=== PATIENT | male | born 1965 | race Hispanic/Latino ===

== ENCOUNTER 2017-08-29 15:43 | Inpatient (IN) | payer OTHER, MEDICARE ==
[2017-08-29] MEDS ORDERED: Ketorolac Tromethamine 30 MG/ML VIAL ONE (17:05)
[2017-08-29] MEDS ORDERED: Acetaminophen 500 MG TAB ONE (17:14)
[2017-08-29 17:15] LABS: #Lymphocytes 0.8 thou/uL (1.20-3.40); #Monocytes 0.6 thou/uL (0.11-0.59); #Neutrophils 5.9 thou/uL (1.40-6.50); %Basophils 0.4 % (0.0-1.0); %Eosinophils 0.5 % (0.0-10.0); %Lymphocytes 10.5 % (21.0-51.0); %Monocytes 8.2 % (0.0-10.0); Mean Platelet Volume 8.7 fL (7.4-10.4); Red Blood Cell (RBC) Count 3.73 mill/uL (4.70-6.10); White Blood Cell (WBC) Count 7.4 thou/uL (4.8-10.8)
[2017-08-29 17:26] LABS: Macrocytosis SLIGHT = 6-15 cells (100X) (0-5/hpf); Polychromasia SLIGHT = 2-3 cells (100X) (0-2/hpf)
--- NOTE | 2017-08-29 17:27 | CT ---
CT OF HEAD NONCONTRAST 08/29/17 INDICATION: Altered mental status. FINDINGS: There is no evidence of ventriculomegaly, mass effect, midline shift or acute intracranial hemorrhage . Suggestion of minimal chronic microvascular ischemic disease. Partial opacification of the imaged p ortion of the paranasal sinuses and elevated right maxillary sinus. IMPRESSION: No acute intracranial hemorrhage or mass effect. POS: [facility]
[2017-08-29 17:34] LABS: ALT (SGPT) 8 U/L (8-55); AST (SGOT) 12 U/L (5-34); Alkaline Phosphatase 48 U/L (40-150); Anion Gap 18 mmol/L (10-20); BUN (Urea Nitrogen) 54 mg/dL (8.4-25.7); Bilirubin, Total 0.6 mg/dL (0.2-1.2); Calc. Creatinine Clearance 0 mL/min (70-130); Calcium 8.9 mg/dL (7.8-10.44); Carbon Dioxide 28 mmol/L (22-29); Chloride 87 mmol/L (98-107); Estimated GFR-MDRD 3; Globulin 3.7 g/dL (2.4-3.5); Protein, Total 7.6 g/dL (6.0-8.3)
[2017-08-29] MEDS ORDERED: Potassium Chloride 20 MEQ TAB PO SCH (18:45)
[2017-08-29] MEDS ORDERED: Dextrose 5% in Water 1,000 ML IV PRN (19:41)
[2017-08-29] MEDS ORDERED: Dextrose 50% Abboject 50 ML SYRINGE SLOW IVP PRN (19:41)
[2017-08-29] MEDS ORDERED: Ondansetron HCl/PF 4 MG/2 ML Vial IVP PRN (20:16)
[2017-08-29] MEDS ORDERED: Ondansetron ODT 4 MG TAB SL PRN (20:16)
--- NOTE | 2017-08-29 20:20 | HP ---
PRIMARY CARE PHYSICIAN: Daria Pace M.D. CHIEF COMPLAINT: Cough. HISTORY OF PRESENT ILLNESS: Mr. Muir is a pleasant 52-year-old gentleman who was seen at [facility] on 08/29/2017. He reports that he had a cough over the last 3-4 days. He reports that it is accompanied by headache and chills. He also started having whitish sputum today. He was seen at urgent care clinic. He was diagnosed with influenza. He received 1 dose of Tamiflu. However, they did not send him home on Tamiflu, because he is a dialysis patient. He also reports that he found himself on the floor twice today, cannot recall how he got there. His glasses were lying to him. He reports that these kinds of episodes have happened in the past as well . He denies any fecal or urinary incontinence. So far, these episodes have been unwitnessed. He de nies any head trauma. He denies any chest pain. I note that, he had a nuclear stress test in 10/2016, which showed mild left ventricular dilatation, no evidence of reversible ischemia and global hypokinesis. He also had cardiac catheterization in , which showed left main disease and 2-vessel CAD, the CAD appearing to have improved since his previous catheterization in 2014. He was recommended medical management. REVIEW OF SYSTEMS: The following complete review of systems was negative, unless otherwise mentioned in the HPI or below: Constitutional: Weight loss or gain, sense of well-being, ability to conduct usual activities, exerc ise tolerance. Skin/Breast: Rash, itching, changes in hair growth or loss, nail changes, breast lumps, tenderness, swelling, nipple discharge. Eyes: Vision, double vision, tearing, blind spots, pain. ENT/Mouth: Headaches (location, time of onset, duration, precipitating factors), vertigo, lightheade dness, injury. Vision, double vision, tearing, blind spots, pain, nose bleeding, colds, obstruction, discharge, dental difficulties, gingival bleeding, dentures, neck stiffness, pain, tenderness, masses in thyroid or other areas. Cardiovascular: Precordial pain, substernal distress, palpitations, syncope, dyspnea on exertion, or thopnea, nocturnal paroxysmal dyspnea, edema, cyanosis, hypertension, heart murmurs, varicosities, ph lebitis, claudication. Respiratory: Pain, shortness of breath, wheezing, stridor, cough, hemoptysis, fever or night sweats. Gastrointestinal: Poor appetite, dysphagia, indigestion, abdominal pain, heartburn, eructation, naus ea, vomiting, hematemesis, jaundice, constipation, or diarrhea, abnormal stools (jeannette-colored, tarry, bloody, greasy, foul smelling), flatulence, hemorrhoids, recent changes in bowel habits. Genitourinary: Urgency, frequency, dysuria, nocturia, hematuria, polyuria, oliguria, unusual (or judy nge in) color of urine, stones, hesitancy, change in size of stream, dribbling, acute retention or in continence, libido, potency. Musculoskeletal: Pain, swelling, redness or heat of muscles or joints, limitation, of motion, muscul ar weakness, atrophy, cramps. Neurologic/Psychiatric: Convulsions, paralyzes, tremor, incoordination, paresthesias, difficulties w ith memory of speech, sensory or motor disturbances, or muscular coordination (ataxia, tremor), emoti onal problems, anxiety, depression, previous psychiatric care, unusual perceptions, hallucinations. Allergy/Immunologic: Skin rash, anemia, bleeding tendency, polydipsia, polyuria, intolerance to heat or cold. PAST MEDICAL HISTORY: Significant for end-stage renal disease on peritoneal dialysis, coronary arter y disease, cardiomyopathy, diet-controlled diabetes mellitus, moderate left internal carotid artery s tenosis, hypertension, chronic anemia, hyperparathyroidism, hypoalbuminemia, diabetic nephropathy, an d collapsed lung in 2007. PAST SURGICAL HISTORY: Significant for dialysis fistula placement. ALLERGIES: ASPIRIN, IODINE. FAMILY HISTORY: Renal failure in his father, two of his cousins in their sleep, diabetes mellit us and hypertension in his father, and hypertension in his mother. SOCIAL HISTORY: The patient denies tobacco use, alcohol use, or recreational drug use. CURRENT MEDICATIONS: These need to be clarified, patient is unable to provide a list of medications. PHYSICAL EXAMINATION: GENERAL: Mr. Muir is awake and alert, not in acute distress. VITAL SIGNS: Blood pressure is 132/75, pulse is 84. He is breathing at rate of 16, and saturating 1 00% on room air. He is afebrile. EYES: No scleral icterus. No conjunctival pallor. ENT: Moist mucosal membranes, no oropharyngeal erythema or exudates. NECK: Supple, nontender, normal range of movement, trachea is midline. RESPIRATORY: Accessory muscles of breathing are not active. Chest wall movements are symmetric bila terally. Lung examination revealed occasional expiratory wheeze. CARDIOVASCULAR: S1 and S2 are heard, regular. Peripheral pulses are palpable. No carotid bruit, no pericardial rub. ABDOMEN: Soft, nontender, bowel sounds heard, no hepatomegaly, no splenomegaly, peritoneal dialysis catheter site looks clean. NEUROLOGIC: Cranial nerves II-XII are intact, deep tendon reflexes are 2+. PSYCHIATRIC: Normal mood, normal affect, patient is oriented to person, place, and time. MUSCULOSKE LETAL: Power is 5/5 in all 4 extremities. Normal range of movement at all major extremity joints. LYMPHATIC: No cervical lymphadenopathy. SKIN: No rashes or subcutaneous nodules. LABORATORY DATA: Mr. Muir's labs and investigations were reviewed. I reviewed his electrocardiogr am, which shows normal sinus rhythm, no ST changes to suggest an acute coronary syndrome. I also rev iewed plain CT scan of the brain, which does not show any intracranial bleed. Laboratory investigati ons show normal white count, macrocytic anemia with hemoglobin 12.8, normal platelet count. Decrease d sodium of 130, decreased potassium of 2.9, elevated blood urea nitrogen 54, elevated creatinine 16. 72, decreased magnesium of 1.5 and an unremarkable liver profile. ASSESSMENT AND PLAN: Mr. Muir is a pleasant 52-year-old gentleman who was seen at [facility]. His problem list includes: 1. Influenza infection: Mr. Muir presents with recently diagnosed influenza infection. I am unab le to access the actual report. Mr. Muir will be treated with Tamiflu, dosed for dialysis patient. 2. Passing out: He appears to have multiple episodes. He does have a significant cardiomyopathy. I cannot rule out a seizure at this time, however. He will be admitted to the hospital for telemetry monitoring. Cardiology and Neurology services will be consulted. I note that reviewing his old rec ords, he was not using [facility]est because of financial reasons. I do not know if this may have changed recently. 3. End-stage renal disease on dialysis: Nephrology service has been consulted for maintenance perit [facility]. 4. Hypertension: Continue home medications once clarified, monitor vital signs and titrate antihype rtensives as needed. 5. Hyponatremia: Monitor electrolytes. 6. Hypokalemia: Provide 1 dose of 40 mEq of potassium chloride, especially since he may be having a rrhythmias. 7. Diabetes mellitus type 2: Start Accu-Cheks, insulin sliding scale. Many thanks for allowing me to participate in your patient's care. Please feel free to contact me wi th any questions or concerns. LEVEL OF RISK: High. LEVEL OF COMPLEXITY: High.
[2017-08-29 21:18] VITALS: BMI 27.4
[2017-08-29] MEDS: Heparin 5,000 UNITS/ML VIAL SC SCH (21:37)
[2017-08-29] MEDS: Benzonatate 100 MG CAP PO PRN (21:44)
[2017-08-30 04:22] LABS: #Eosinphils 0.1 thou/uL (0.0-0.7); #Lymphocytes 1.4 thou/uL (1.20-3.40); #Monocytes 0.5 thou/uL (0.11-0.59); %Basophils 0.3 % (0.0-1.0); %Eosinophils 1.9 % (0.0-10.0); %Lymphocytes 22.5 % (21.0-51.0); Hematocrit 31.4 % (42.0-52.0); Mean Platelet Volume 8.5 fL (7.4-10.4); Red Blood Cell (RBC) Count 3.05 mill/uL (4.70-6.10)
[2017-08-30 04:28] LABS: Anion Gap 16 mmol/L (10-20); BUN (Urea Nitrogen) 60 mg/dL (8.4-25.7); Calc. Creatinine Clearance 6 mL/min (70-130); Calcium 8.1 mg/dL (7.8-10.44); Carbon Dioxide 25 mmol/L (22-29); Chloride 94 mmol/L (98-107); Estimated GFR-MDRD 3
[2017-08-30 08:37] LABS: Troponin I 0.061 ng/mL (< 0.028)
[2017-08-30] MEDS ORDERED: Enoxaparin Sodium 40 MG/0.4 ML SYRINGE SC SCH (09:00)
[2017-08-30] MEDS ORDERED: Oseltamivir 6 MG/ML ORAL SUSP PO SCH (09:00)
--- NOTE | 2017-08-30 09:19 | PDOC.PN ---
- Subjective Encounter Start Date: 08/30/17 Encounter Start Time: 07:50 -: old records requested/rev Pt seen and examined, chart reviewed in its entirety. No F/c, no N/V/d/C. Some dizziness when stnading, but overlal improved. orrthostatics done earlier he reports, got dizzy and sat right down, no syncope, no tunnel darkening. Denies F/c, no N/V/d/C, no CP, no SOB, no cough. Pt on PD, given single dose of tamiflu at urgent care two days ago, does not need more. dose today cancelled. Neurology consulted, awaiting visit. Nephrology consulted and saw the pt late last night. recommended biomarkers, carotid U/S - i have ordered these for today Cardiology consulted - awaiting visit, tele has been negative 10 point ROS performed and neg for all except as per HPI above - Objective MAR Reviewed: Yes Vital Signs & Weight: Vital Signs (12 hours) Temp Pulse Resp BP Pulse Ox 08/30/17 08:00 97.6 F 76 16 133/84 98 08/30/17 04:00 97.8 F 76 18 129/79 98 08/29/17 23:24 98.0 F 86 16 107/63 100 Weight Weight 175 lb 3.2 oz I&O: 08/29/17 08/30/17 08/31/17 06:59 06:59 06:59 Intake Total 120 Output Total 1 Balance 119 Result Diagrams: 08/30/17 03:45 08/30/17 03:45 Additional Labs: Accuchecks 08/30/17 08/29/17 06:00 21:25 POC Glucose 155 H 189 H Radiology Reviewed by me: Yes EKG Reviewed by me: Yes Phys Exam - Physical Examination Constitutional: NAD HEENT: PERRLA, moist MMs, sclera anicteric, oral pharynx no lesions Neck: no nodes, no JVD, supple, full ROM Respiratory: no wheezing, no rales, no rhonchi, clear to auscultation bilateral Cardiovascular: RRR, no significant murmur, no rub Gastrointestinal: soft, non-tender, no distention, positive bowel sounds Musculoskeletal: pulses present, edema present Neurological: non-focal, normal sensation, moves all 4 limbs Lymphatic: no nodes Psychiatric: normal affect, A&O x 3 Skin: no rash, normal turgor, cap refill <2 seconds Dx/Plan (1) Influenza A Code(s): J10.1 - FLU DUE TO OTH IDENT INFLUENZA VIRUS W OTH RESP MANIFEST Status: Acute Comment: received tamiflu 2 days ago. with PD, recommended for single dose. no further indicated (2) CKD (chronic kidney disease) stage 5, GFR less than 15 ml/min Code(s): N18.5 - CHRONIC KIDNEY DISEASE, STAGE 5 Status: Chronic Comment: ESRD on PD. (3) Diabetes type 2, uncontrolled Code(s): E11.65 - TYPE 2 DIABETES MELLITUS WITH HYPERGLYCEMIA Status: Acute Qualifiers: Diabetes mellitus complication status: with kidney complications Diabetes mellitus complication detail: with chronic kidney disease Diabetes mellitus regulatory technician insulin use: without jail use Chronic kidney disease stage: on chronic dialysis Qualified Code(s): E11.22 - Type 2 diabetes mellitus with diabetic chronic kidney disease; E11.65 - Type 2 diabetes mellitus with hyperglycemia; E11.65 - Type 2 diabetes mellitus with hyperglycemia; E11.65 - Type 2 diabetes mellitus with hyperglycemia; E11.65 - Type 2 diabetes mellitus with hyperglycemia; N18.6 - End stage renal disease; N18.6 - End stage renal disease; N18.6 - End stage renal disease; N18.6 - End stage renal disease; Z99.2 - Dependence on renal dialysis; Z99.2 - Dependence on renal dialysis; Z99.2 - Dependence on renal dialysis; Z99.2 - Dependence on renal dialysis (4) Anemia Code(s): D64.9 - ANEMIA, UNSPECIFIED Status: Chronic Qualifiers: Anemia type: due to chronic kidney disease Chronic kidney disease stage: on chronic dialysis Qualified Code(s): N18.6 - End stage renal disease; D63.1 - Anemia in chronic kidney disease; D63.1 - Anemia in chronic kidney disease; Z99.2 - Dependence on renal dialysis; Z99.2 - Dependence on renal dialysis; Z99.2 - Dependence on renal dialysis; Z99.2 - Dependence on renal dialysis (5) Cardiomyopathy Code(s): I42.9 - CARDIOMYOPATHY, UNSPECIFIED Status: Chronic Qualifiers: Cardiomyopathy type: unspecified Qualified Code(s): I42.9 - Cardiomyopathy , unspecified Comment: last EF 30-35%.repeat ECHO results pending (6) DM type 2 (diabetes mellitus, type 2) Status: Chronic Qualifiers: Diabetes mellitus complication status: with kidney complications Diabetes mellitus complication detail: with chronic kidney disease Chronic kidney disease stage: on chronic dialysis (7) ESRD (end stage renal disease) Code(s): N18.6 - END STAGE RENAL DISEASE Status: Chronic Comment: on PD (8) Hypertension Code(s): I10 - ESSENTIAL (PRIMARY) HYPERTENSION Status: Chronic Qualifiers: Hypertension type: essential hypertension Qualified Code(s): I10 - Essential (primary) hypertension Comment: uncontrolled - Plan cont current plan of care, PT/OT * .
[2017-08-30] MEDS: Heparin 5,000 UNITS/ML VIAL SC SCH ×3 (09:21→21:25)
--- NOTE | 2017-08-30 12:23 | ULT ---
CAROTID ULTRASOUND WITH DOPPLER: Date: 08/30/17 HISTORY: Syncope. COMPARISON: 08/06/15. TECHNIQUE: Peralta scale, color flow, Doppler imaging, and spectral waveform analysis performed in the carotid and vertebral arteries. FINDINGS: RIGHT CAROTID: There are small foci of calcified plaque in the carotid artery. Peak systolic velocity in the common carotid artery is 107 cm/second. Peak systolic velocity in the internal carotid artery is 84.8 cm/sec ond. Systolic ICA/CCA ratio is 0.8. LEFT CAROTID: Atherosclerotic disease of the left carotid artery. Peak systolic velocity in the common carotid carly ry is 123.9 cm/second. Peak systolic velocity in the internal carotid artery is 144 cm/second. Peak e nd-diastolic velocity of the internal carotid artery is 43.7 cm/second. Systolic ICA/CCA ratio is 1.2 . Antegrade flow in both vertebral arteries. IMPRESSION: Sonographic evidence of moderate (50-69%) stenosis of the left internal carotid artery. Better interr ogation with CT angiogram of the neck is recommended. POS: PAT
[2017-08-30] MEDS: Acetaminophen 325 MG TAB PO PRN (15:00)
[2017-08-30] MEDS: HumaLOG 300 UNITS/3 ML VIAL SC PRN (17:50)
[2017-08-30] MEDS: Sevelamer Carbonate 800 MG TAB PO SCH (17:51)
[2017-08-30 17:58] LABS: Troponin I 0.036 ng/mL (< 0.028)
--- NOTE | 2017-08-30 20:42 | CON ---
NEUROLOGIC FOLLOWUP NOTE DATE OF CONSULTATION: 08/30/2017 REFERRING PHYSICIAN: Hospitalist Service. IMPRESSION: 1. Recurrent seizures. 2. Renal failure. PLAN: 1. Keppra 250 mg twice a day. 2. Office followup. Mr. Muir is a 52-year-old man, I have seen in the office for workup of seizure activity as EEG and imaging have been unremarkable. He has had 3 witnessed events in the recent past. He has no aura pr ior to the onset. His family has witnessed generalized tonic clonic activity. He was admitted and h ad a CT scan of the brain done, which was normal. LABORATORY STUDIES: Consistent with his renal failure. SUMMARY: I have started him on Keppra 250 b.i.d. and follow up with him in the office.
[2017-08-30] MEDS: levETIRAcetam 500 MG TAB PO SCH (21:26)
[2017-08-30] MEDS: Benzonatate 100 MG CAP PO PRN (21:26)
[2017-08-31 02:19] LABS: Troponin I 0.037 ng/mL (< 0.028)
--- NOTE | 2017-08-31 04:18 | CON ---
DATE OF CONSULTATION: 08/30/2017 PRIMARY CARD READER: Dr. Adama Dash. REASON FOR CONSULTATION: Recurrent syncope. HISTORY OF PRESENT ILLNESS: Mr. Muir is a gentleman with history of coronary artery disease and so me depression of left ventricular function who was seen earlier this year in October and reevaluated. It had previously found to have 2-vessel coronary disease. Reevaluation was done including stress test, nuclear medicine, perfusion imaging. At that time, he was found to have ejection fraction of 3 5%, 41% initially, delayed stress imaging 35%. There was no evidence of reversible ischemia, global hypokinesis. Medical therapy was continued. He also had an echocardiogram with ejection fraction of 35% to 40%. At that point, he did not meet criteria to have defibrillator placed. Since then, the patient has had done okay, but recently has had multiple episodes of being unresponsive and appeared it was sounds like at least one syncopal episode, perhaps several weeks, unresponsive, came here for further evaluation. No chest pain or pressure. MEDICATIONS: 1. Carvedilol 12.5 mg twice daily. 2. Isosorbide 60 mg daily. 3. Simvastatin. 4. Acetaminophen. ALLERGIES: To ASPIRIN and IODINE. PAST MEDICAL HISTORY: End-stage renal disease on peritoneal dialysis. He is hoping for renal transp lant. REVIEW OF SYSTEMS: Constitutional: No significant weight gain or loss. Vision: No changes. Hearing: No changes. Pu lmonary: No cough or wheezing. Gastrointestinal: No nausea, vomiting, diarrhea. Skin: No rashes. Neurologic: No unilateral weakness or numbness. Psychiatric: No unusual depression or anxiety. Hematologic: No unusual bruising. Genitourinary: No burning with urination. PHYSICAL EXAMINATION: GENERAL: This is a delightful 52-year-old man in no distress. VITAL SIGNS: Blood pressure 150/87, the nurse voice and data technician did take the blood pressure standing, sitti ng, it dropped slightly with sitting, but went back up to normal standing. NECK: Neck veins are normal. Carotid normal upstrokes. No bruits. LUNGS: Clear. No wheezing. CARDIAC: Normal S1, normal S2. There is no murmur, rub or gallop. ABDOMEN: Soft, nontender, no hepatosplenomegaly. EXTREMITIES: Warm and dry. No clubbing, no cyanosis, no edema. HEMATOLOGIC: No unusual bruising. PSYCHIATRIC: Mood and affect normal. SKIN: Warm and dry. PERTINENT LABORATORY: The creatinine is 17. Troponin 0.061. Hemoglobin is 11.1. EKG: Normal EKG. ASSESSMENT: 1. Coronary artery disease. 2. Ejection fraction has been 35-40% range. 3. Unresponsive episodes that sounds like at least one of the sounds like a syncopal episode. PLAN: 1. Repeat echocardiogram. 2. May qualify for defibrillator implantation. He is being monitored now to see if there is any mahamed dence of ventricular arrhythmias.
[2017-08-31 05:42] LABS: #Eosinphils 0.2 thou/uL (0.0-0.7); #Lymphocytes 0.9 thou/uL (1.20-3.40); #Monocytes 0.5 thou/uL (0.11-0.59); #Neutrophils 4.8 thou/uL (1.40-6.50); %Basophils 0.2 % (0.0-1.0); %Eosinophils 3.1 % (0.0-10.0); %Lymphocytes 14.1 % (21.0-51.0); %Monocytes 7.5 % (0.0-10.0); Hematocrit 33.5 % (42.0-52.0); Red Blood Cell (RBC) Count 3.28 mill/uL (4.70-6.10); White Blood Cell (WBC) Count 6.3 thou/uL (4.8-10.8)
[2017-08-31 06:00] LABS: Anion Gap 20 mmol/L (10-20); BUN (Urea Nitrogen) 65 mg/dL (8.4-25.7); Calc. Creatinine Clearance 6 mL/min (70-130); Calcium 8.2 mg/dL (7.8-10.44); Carbon Dioxide 21 mmol/L (22-29); Chloride 92 mmol/L (98-107); Estimated GFR-MDRD 3; Magnesium 1.7 mg/dL (1.6-2.6)
[2017-08-31] MEDS: HumaLOG 300 UNITS/3 ML VIAL SC PRN (06:32)
[2017-08-31] MEDS: Sevelamer Carbonate 800 MG TAB PO SCH ×3 (08:38→17:21)
[2017-08-31] MEDS: levETIRAcetam 500 MG TAB PO SCH ×2 (08:39→23:19)
[2017-08-31] MEDS: Heparin 5,000 UNITS/ML VIAL SC SCH ×3 (08:41→20:07)
[2017-08-31] MEDS: Benzonatate 100 MG CAP PO PRN ×2 (08:50→13:40)
--- NOTE | 2017-08-31 11:29 | PRG ---
DATE OF SERVICE: 08/31/2017 SUBJECTIVE: The patient is seen and examined at bedside. He is doing quite well. He does not have much complaints to offer. He did not have more seizures overnight. OBJECTIVE: VITAL SIGNS: Blood pressure is 154/95, pulse is 67, respiratory rate 24, temperature is 98.4, O2 sat uration is 91-98% on room air. HEENT: His head is atraumatic, normocephalic. Eyes PERRLA. Conjunctivae pinkish. Oral mucosa is m oist. NECK: Supple, no lymphadenopathy. LUNGS: Clear. HEART: S1, S2 normal, no S3, no S4, no murmur. ABDOMEN: Soft, nontender, bowel sounds are present, no organomegaly. EXTREMITIES: No clubbing, cyanosis or edema. NEUROLOGIC: He is alert and oriented x4. There is no sensorimotor deficit. Cranial nerves are inta ct. LABORATORY DATA: Showed a white count of 6.3, hemoglobin 11.8, hematocrit 33.5, platelet count is 10 1. Sodium of 130, potassium 3.0, chloride 92, CO2 21, BUN 65, creatinine 16.96, glucose is ranging from 130s to 233. Third troponin I is 0.037. CK-MB is 2.6. MICROBIOLOGY: None. IMPRESSION: 1. Recurrent seizures. The patient was seen by Neurology and placed on Keppra. Follow up in Dr. John kamara's office is recommended post-discharge 2. Influenza infection. 3. End-stage renal disease on peritoneal dialysis. Dr. Anderson has seen the patient. 4. Hypertension. 5. Diabetes mellitus type 2 on sliding scale. 6. Hypokalemia. 7. Microcytic anemia. 8. Hyponatremia and hypochloremia. 9. Metabolic acidosis, most likely chronic secondary to renal insufficiency, which is chronic. 10. History of cardiomyopathy with left ventricular ejection fraction 35-40%. 11. Coronary artery disease. PLAN: We are awaiting for echocardiogram to be done and based on this, Cardiology will make a decisi on whether he is going to have a defibrillator placed or not. I also will continue his peritoneal di alysis, supervised by Dr. Anderson. We will replace his potassium.
--- NOTE | 2017-08-31 13:22 | PDOC.CTH ---
<Nisreen Barbosa - Last Filed: 08/31/17 13:32> Cardiology Progress Note - Subjective The pt seen and examined. No overnight events. He complains of sharp pain in his Mediastinal area with cough. Carotid doppler study showed 50-60% of stenosis in Lt ICA. - Objective Vital Signs Temp Pulse Resp BP BP BP Pulse Ox 08/31/17 11:20 98 F 80 18 115/74 98 08/31/17 08:00 98.4 F 67 24 H 08/31/17 07:53 98.4 F 67 24 H 105/79 91 L 08/31/17 05:05 91 16 154/95 H 98 08/31/17 04:22 98 Weight 187 lb 08/30/17 08/31/17 09/01/17 06:59 06:59 06:59 Intake Total 120 950 Output Total 1 Balance 119 950 - Physical Examination General/Neuro: alert & oriented x3 Neck: no JVD present Lungs: other: (diminished at bases) Abdomen: soft Extremities: other: (No edemas) - Telemetry Telemetry Rhythm: SR - Labs Result Diagrams: 08/31/17 05:02 08/31/17 05:02 Troponin/CKMB CK-MB (CK-2) 2.6 ng/mL (0-6.6) 08/31/17 00:16 Troponin I 0.037 ng/mL (< 0.028) H 08/31/17 00:16 - Assessment/Plan 1. Atypical CP with Indeterminate Trop - elevated Trops are possible from hx of seizure. His CP is sharp pain in mediastinal area and increases with movement, especially with severe cough 2ndary to Influenza A; 2. Cardiomyopathy - Echo in 10/2016 showed EF 35-40% with grade III diastolic dysfunction; no edemas; Another Echo was ordered 3. seizure - no seizure events during this admission; 4. Influenza A - Droplet Isolation; managed by PCP 5. HTN - well controlled with current medication 6. CKD stage 5 - ESRD on PD; 7. DM type 2 - on ACHS BG with Insulin SS; managed by PCP 8. Amemia MAR reviewed Review of Systems - Review of Systems Constitutional: reports: no symptoms reported EENTM: reports: no symptoms reported Respiratory: reports: no symptoms reported Cardiac (ROS): reports: chest pain ABD/GI: reports: no symptoms reported : reports: no symptoms reported Musculoskeletal: reports: no symptoms reported <Chato Dash - Last Filed: 08/31/17 16:24> Cardiology Progress Note - Objective Vital Signs Temp Pulse Resp BP BP BP Pulse Ox 08/31/17 15:31 97.4 F L 78 16 135/83 99 08/31/17 11:20 98 F 80 18 115/74 98 08/31/17 08:00 98.4 F 67 24 H 08/31/17 07:53 98.4 F 67 24 H 105/79 91 L 08/31/17 05:05 91 16 154/95 H 98 08/31/17 04:22 98 Weight 187 lb 08/30/17 08/31/17 09/01/17 06:59 06:59 06:59 Intake Total 120 950 Output Total 1 Balance 119 950 - Labs Result Diagrams: 08/31/17 05:02 08/31/17 05:02 Troponin/CKMB CK-MB (CK-2) 2.6 ng/mL (0-6.6) 08/31/17 00:16 Troponin I 0.037 ng/mL (< 0.028) H 08/31/17 00:16 - Assessment/Plan Pt. seen and eval. by me. No overnight events.The echo indicates an EF 40-45%. It is still unclear if he is having arrhythmias or seizures. Recheck the orthostatic BP. continue to monitor. Consider a LinQ, implantable loop recorder. I agree with the A\P by the GRAIN WAFER MACHINE OPERATOR. Chest clear, RRR.
[2017-08-31] MEDS: Carvedilol 6.25 MG TAB PO SCH (17:21)
[2017-08-31] MEDS: Acetaminophen 325 MG TAB PO PRN (17:22)
[2017-08-31] MEDS ORDERED: Sodium Chloride 0.9% 500 ML IVPB SCH ×2 (21:15→23:30)
[2017-08-31] MEDS ORDERED: Pantoprazole 40 MG VIAL IVP SCH (22:00)
--- NOTE | 2017-08-31 22:33 | RAD ---
AP VIEW OF THE CHEST 08/31/17 INDICATION: Chest discomfort. COMPARISON: Prior exam dated 05/23/17. IMPRESSION: No acute cardiopulmonary abnormality. The examination not appreciably changed from the comparison ed ed 08/28/17. POS: PAT
[2017-08-31 23:06] LABS: Troponin I 0.028 ng/mL (< 0.028)
[2017-09-01 02:00] LABS: Troponin I 0.028 ng/mL (< 0.028)
[2017-09-01] MEDS: HumaLOG 300 UNITS/3 ML VIAL SC PRN (06:17)
[2017-09-01] MEDS: Heparin 5,000 UNITS/ML VIAL SC SCH ×3 (07:51→21:30)
[2017-09-01] MEDS: Carvedilol 6.25 MG TAB PO SCH ×2 (07:53→14:59)
[2017-09-01] MEDS: Benzonatate 100 MG CAP PO PRN ×2 (09:28→13:54)
[2017-09-01] MEDS: Pantoprazole 40 MG VIAL IVP SCH (09:28)
[2017-09-01] MEDS: levETIRAcetam 500 MG TAB PO SCH ×2 (09:28→21:31)
[2017-09-01] MEDS: Sevelamer Carbonate 800 MG TAB PO SCH ×3 (11:13→17:32)
--- NOTE | 2017-09-01 20:55 | PRG ---
DATE OF SERVICE: 09/01/2017 SUBJECTIVE: The patient was seen and examined at bedside. He does not have much complaints to offer . He is getting peritoneal dialysis as I visited him. OBJECTIVE: VITAL SIGNS: Blood pressure is 105/59, pulse is 68, temperature is 98.9, respiratory rate is 20, pul se oximetry is 97% on room air. HEENT: His head is atraumatic, normocephalic. Eyes are PERRLA. Oral mucosa is moist. NECK: Supple, no lymphadenopathy. LUNGS: Few crackles at both bases. CARDIOVASCULAR: S1, S2 normal, no S3, no S4. ABDOMEN: Soft. PDI catheter is in place and is connected to the back of dialysis site and he is act ively getting dialyzed during my visit. EXTREMITIES: No clubbing, cyanosis or edema. NEUROLOGIC: He is alert and oriented x4. There is no any motor or sensory deficits. LABORATORY DATA: Showed a glycemia ranging from 132-275. IMPRESSION: 1. Recurrent seizures, currently on Keppra low dose twice a day and doing well. 2. Influenza A infection. 3. End-stage renal disease on peritoneal dialysis, actively getting dialyzed daily. Dr. Anderson is s upervising that. 4. Hypertension. 5. Diabetes mellitus type 2, relatively well controlled on a sliding scale. 6. Hypokalemia, resolved. 7. Metabolic acidosis, most likely chronic secondary to renal insufficiency. 8. Cardiomyopathy with left ventricular ejection fraction based on the last echocardiogram, estimate d visually at 40-45% along with mild diastolic dysfunction. 9. Hypotension. We had to hold his blood pressure medications because his blood pressure was runnin g down to 7 days last night and he was complaining about feeling kind of weak. He is doing better no w and his systolic is up to 105 and diastolic up to 59. The patient was seen by Dr. Villalpando, who ordered blood cultures. One source of infection if this would be the cause of the hypotension would be the abdomen since he is getting dialysis peritoneally he might have spontaneous bacterial peritoni tis. We will obtain a CBC tomorrow and chemistry and otherwise continue current regimen.
[2017-09-01] MEDS ORDERED: HumaLOG 300 UNITS/3 ML VIAL SC PRN (21:49)
[2017-09-02] MEDS: Benzonatate 100 MG CAP PO PRN ×2 (04:12→16:48)
[2017-09-02 05:39] LABS: #Basophils 0.1 thou/uL (0.0-0.2); #Eosinphils 0.2 thou/uL (0.0-0.7); #Lymphocytes 1.7 thou/uL (1.20-3.40); #Monocytes 0.4 thou/uL (0.11-0.59); #Neutrophils 3.5 thou/uL (1.40-6.50); %Basophils 0.8 % (0.0-1.0); %Lymphocytes 29.2 % (21.0-51.0); %Monocytes 7.3 % (0.0-10.0); Mean Platelet Volume 8.5 fL (7.4-10.4); Red Blood Cell (RBC) Count 3.13 mill/uL (4.70-6.10); White Blood Cell (WBC) Count 5.9 thou/uL (4.8-10.8)
[2017-09-02 05:59] LABS: Anion Gap 20 mmol/L (10-20); BUN (Urea Nitrogen) 52 mg/dL (8.4-25.7); Calc. Creatinine Clearance 8 mL/min (70-130); Calcium 8.1 mg/dL (7.8-10.44); Carbon Dioxide 22 mmol/L (22-29); Chloride 92 mmol/L (98-107); Estimated GFR-MDRD 3
[2017-09-02] MEDS: HumaLOG 300 UNITS/3 ML VIAL SC PRN ×2 (06:37→17:23)
[2017-09-02] MEDS ORDERED: Potassium Chloride 20 MEQ TAB PO SCH (07:30)
[2017-09-02] MEDS: Heparin 5,000 UNITS/ML VIAL SC SCH ×3 (08:37→20:28)
[2017-09-02] MEDS: Carvedilol 6.25 MG TAB PO SCH ×2 (08:37→16:48)
[2017-09-02] MEDS: Sevelamer Carbonate 800 MG TAB PO SCH ×3 (09:39→16:49)
[2017-09-02] MEDS: Pantoprazole 40 MG VIAL IVP SCH (09:42)
[2017-09-02] MEDS: levETIRAcetam 500 MG TAB PO SCH ×2 (09:42→20:28)
[2017-09-02] MEDS: guaiFENesin/Codeine Phosphate 200 mg/20 mg 10 ml UD Cup PO PRN ×2 (09:55→21:38)
--- NOTE | 2017-09-02 13:34 | PRG ---
DATE OF SERVICE: 09/02/2017 SUBJECTIVE: The patient is seen and examined at the bedside. He is doing significantly better. His blood pressure finally recovered. OBJECTIVE: VITAL SIGNS: Blood pressure is 111/63, temperature is 97.4, pulse is 77, respiratory rate is 18, and O2 saturations 98% on room air. HEENT: His head is atraumatic, normocephalic. Sclerae not icteric. Conjunctivae pinkish. Oral muc bharti is moist. NECK: Supple, no lymphadenopathy. Thyroid is not palpable. LUNGS: Presenting with a few crackles at both bases. HEART: S1, S2 normal, no S3, no S4. ABDOMEN: Soft. A PD catheter is in place. Site looks good. There is no erythema. EXTREMITIES: No clubbing, cyanosis, or edema. NEUROLOGICAL EXAMINATION: Intact. LABORATORY DATA: Labs showed sodium of 131, potassium 3.0, chloride 92, BUN 52, creatinine 15.28, gl ucose is ranging from 127-217, calcium is 81. White count of 5.9, hemoglobin of 10.9, hematocrit 32. 0, platelet count is 106, MCV 102. IMPRESSION: 1. Recurrent seizures. Patient is on Keppra, doing well, no more seizures during this hospitalizati on. 2. Influenza A infection. 3. End-stage renal disease, on peritoneal dialysis. 4. Hypertension. 5. Diabetes mellitus, type 2, relatively well controlled on a sliding scale. 6. Hypokalemia. The patient is going to have 40 mEq of KCl today. 7. Metabolic acidosis, secondary to renal insufficiency. 8. Cardiomyopathy with LVEF estimated at 40%-45% on last echocardiogram done during this hospitaliza tion. There is also some mild diastolic dysfunction present on echocardiogram. 9. Hypotension with orthostasis. I believe that he is getting more fluids out than he is putting in during his peritoneal dialysis and that is why he is hypovolemic and orthostatic. I am going to elisabet ve this up to his unix systems administrator, Dr. Anderson, to manage this issue and choose appropriate solutions for his peritoneal dialysis. 10. Carotid artery disease with 50%-69% stenosis of the left internal carotid artery. 11. Cardiomyopathy with EF estimated at 40%-45%, so there is no plan to put any defibrillator at thi s point. PLAN: To make some adjustment in his medications since his blood pressure is still running on the lo wer side despite of holding his blood pressure medications. Also, he needs to have adjustment of his volume, which is taken out during the dialysis. We are going to wait until Dr. Anderson makes this re commendation. For now, we will continue his current regimen, and his blood cultures came back negati ve.
[2017-09-03 05:57] LABS: Anion Gap 17 mmol/L (10-20); BUN (Urea Nitrogen) 45 mg/dL (8.4-25.7); Calc. Creatinine Clearance 7 mL/min (70-130); Calcium 7.8 mg/dL (7.8-10.44); Carbon Dioxide 25 mmol/L (22-29); Chloride 93 mmol/L (98-107); Estimated GFR-MDRD 3
[2017-09-03] MEDS: HumaLOG 300 UNITS/3 ML VIAL SC PRN ×2 (06:28→17:57)
[2017-09-03] MEDS ORDERED: Carvedilol 6.25 MG TAB PO SCH ×2 (09:34→10:00)
[2017-09-03] MEDS: Sevelamer Carbonate 800 MG TAB PO SCH ×3 (10:10→17:52)
[2017-09-03] MEDS: levETIRAcetam 500 MG TAB PO SCH ×2 (10:12→21:37)
[2017-09-03] MEDS: Pantoprazole 40 MG VIAL IVP SCH (10:13)
[2017-09-03] MEDS: Heparin 5,000 UNITS/ML VIAL SC SCH (10:14)
[2017-09-03] MEDS: guaiFENesin/Codeine Phosphate 200 mg/20 mg 10 ml UD Cup PO PRN (10:34)
[2017-09-03] MEDS: Carvedilol 6.25 MG TAB PO SCH ×2 (10:48→17:54)
[2017-09-03] MEDS ORDERED: Acetaminophen/Codeine 30-300mg Tablet PO PRN (11:47)
--- NOTE | 2017-09-03 12:04 | PDOC.PN ---
- Subjective Encounter Start Date: 09/03/17 Encounter Start Time: 11:45 Subjective: f/u for syncope likely due to hypotension. BP trend improved with reduced -: Coreg and Imdur. + Influenza A on Tamiflu. Overall improved but some -: residual [place]. - Objective MAR Reviewed: Yes Vital Signs & Weight: Vital Signs (12 hours) Temp Pulse Resp BP BP Pulse Ox 09/03/17 11:57 97.9 F 73 20 117/77 97 09/03/17 10:48 123/76 09/03/17 10:13 123/76 09/03/17 08:00 98.1 F 70 20 94 L 09/03/17 07:57 98.1 F 70 20 89/66 L 94 L 09/03/17 04:00 97.8 F 72 16 124/84 100 09/03/17 01:27 97.8 F 70 16 101/69 100 Weight Weight 189 lb 5 oz I&O: 09/02/17 09/03/17 09/04/17 06:59 06:59 06:59 Intake Total 300 120 Balance 300 120 Result Diagrams: 09/02/17 04:59 09/03/17 05:02 Additional Labs: Accuchecks 09/03/17 09/03/17 09/02/17 10:44 06:26 22:20 POC Glucose 134 H 206 H 132 H 09/02/17 17:03 POC Glucose 205 H Radiology Reviewed by me: Yes (Echo - EF 45%) EKG Reviewed by me: Yes (Tele - SR in 70's) Phys Exam - Physical Examination Constitutional: NAD HEENT: PERRLA, oral pharynx no lesions Neck: no JVD, supple Respiratory: no wheezing, clear to auscultation bilateral Cardiovascular: RRR PD cath in place Gastrointestinal: soft, non-tender, no distention, positive bowel sounds Musculoskeletal: no edema, pulses present Neurological: normal sensation, moves all 4 limbs Psychiatric: A&O x 3 Skin: normal turgor, cap refill <2 seconds Dx/Plan (1) Syncope Code(s): R55 - SYNCOPE AND COLLAPSE Status: Acute Comment: Likely due to hypotension, currently tx with adjustments to BP regimen and Keppra after ? seizure recurrence (2) Hypotension Status: Acute Comment: Improved, continue BP regimen modification, monitor trend (3) Hypokalemia Code(s): E87.6 - HYPOKALEMIA Status: Acute Comment: KCL 40meq BID, repeat K + in am (4) Influenza A Code(s): J10.1 - FLU DUE TO OTH IDENT INFLUENZA VIRUS W OTH RESP MANIFEST Status: Acute Comment: received tamiflu 2 days ago. with PD, recommended for single dose. no further indicated (5) ESRD (end stage renal disease) Code(s): N18.6 - END STAGE RENAL DISEASE Status: Chronic Comment: on PD - Plan out of bed/ambulate, DVT proph w/SCDs Stable overall -: Resume home Phenergan prn nausea -: D/C Heparin -: OOB/ambulate -: Change Protonix 40mg po daily * AM lab: BMP * Home in am
[2017-09-03] MEDS: Benzonatate 100 MG CAP PO PRN (12:45)
[2017-09-03] MEDS ORDERED: Potassium Chloride 20 MEQ TAB PO SCH (13:00)
[2017-09-03] MEDS: Potassium Chloride 20 MEQ TAB PO SCH (17:52)
[2017-09-04 05:58] LABS: Anion Gap 18 mmol/L (10-20); BUN (Urea Nitrogen) 42 mg/dL (8.4-25.7); Calc. Creatinine Clearance 7 mL/min (70-130); Calcium 7.7 mg/dL (7.8-10.44); Carbon Dioxide 23 mmol/L (22-29); Chloride 95 mmol/L (98-107); Estimated GFR-MDRD 4
[2017-09-04] MEDS: HumaLOG 300 UNITS/3 ML VIAL SC PRN (06:44)
--- NOTE | 2017-09-04 09:29 | PDOC.CTH ---
<Nisreen Barbosa - Last Filed: 09/04/17 09:28> Cardiology Progress Note - Subjective The pt seen and examined. No overnight events. No cardiac complaints. His BP has been stable without Imdur per RN. He still complains of intermittent dizziness when he gets up from his bed and walking toward to bathroom. He described as he is having "sea sick" and denied any lightheadedness or near syncopal episodes - Objective Vital Signs Temp Pulse Resp BP Pulse Ox 09/04/17 07:15 97.6 F 71 18 116/71 99 09/04/17 04:32 97.8 F 70 16 112/72 97 09/04/17 00:54 97.7 F 70 16 97/60 97 Weight 188 lb 09/03/17 09/04/17 09/05/17 06:59 06:59 06:59 Intake Total 300 830 Balance 300 830 - Physical Examination General/Neuro: alert & oriented x3 Neck: no JVD present Lungs: CTA Heart: RRR Abdomen: soft Extremities: other: (No edema) - Telemetry Telemetry Rhythm: SR - Labs Result Diagrams: 09/02/17 04:59 09/04/17 05:09 Troponin/CKMB CK-MB (CK-2) 2.6 ng/mL (0-6.6) 08/31/17 00:16 Troponin I 0.028 ng/mL (< 0.028) 09/01/17 01:24 - Assessment/Plan 1. Atypical CP with Indeterminate Trop - elevated Trops are possible from hx of seizure. Today, he denied any CP or discomfort in his chest; 2. Cardiomyopathy - Echo on 09/01/17 revealed EF 40-45%, grade I diastolic dysfunction, and mild MR and TR; Echo in 10/2016 showed EF 35-40% with grade III diastolic dysfunction; no edemas or SOB; 3. seizure - no seizure events with Keppra; 4. Influenza A - Droplet Isolation; managed by PCP 5. HTN - Stop Imdur because he has not taken the medication and his BP is stable per RN 6. CKD stage 5 - ESRD on PD qHS; 7. DM type 2 - on ACHS BG with Insulin SS; managed by PCP 8. Amemia - stable MAR reviewed * From cardiac standpoint, the pt is stable for discharge to home. The pt will f/u with Dr Dash' office within 2-4wks. * Possible LINQ placement to continue to monitor if his symptoms do not improve. . Review of Systems - Review of Systems Constitutional: reports: no symptoms reported EENTM: reports: no symptoms reported Respiratory: reports: no symptoms reported Cardiac (ROS): reports: no symptoms reported ABD/GI: reports: no symptoms reported : reports: no symptoms reported Musculoskeletal: reports: no symptoms reported Skin: reports: lesions Neurological: reports: see HPI <Chato Dash - Last Filed: 09/04/17 11:57> Cardiology Progress Note - Objective Vital Signs Temp Pulse Resp BP BP Pulse Ox 09/04/17 11:21 97.9 F 71 18 120/70 99 09/04/17 09:37 112/67 09/04/17 08:00 97.6 F 71 18 09/04/17 07:15 97.6 F 71 18 116/71 99 09/04/17 04:32 97.8 F 70 16 112/72 97 09/04/17 00:54 97.7 F 70 16 97/60 97 Weight 188 lb 09/03/17 09/04/17 09/05/17 06:59 06:59 06:59 Intake Total 300 830 Balance 300 830 - Labs Result Diagrams: 09/02/17 04:59 09/04/17 05:09 Troponin/CKMB CK-MB (CK-2) 2.6 ng/mL (0-6.6) 08/31/17 00:16 Troponin I 0.028 ng/mL (< 0.028) 09/01/17 01:24 - Assessment/Plan Pt. seen and eval. by me. I agree with the A/P by the CYCLE MANAGER. Chest clear. RRR. No arrhythmias have been noted. Syncope may have been due to hypotension. He does have orthostatic hypotension. This has improved after medication adjustment. I suggested that he wear comp[ression thigh high support hose.
[2017-09-04] MEDS: Potassium Chloride 20 MEQ TAB PO SCH (09:36)
[2017-09-04] MEDS: Sevelamer Carbonate 800 MG TAB PO SCH ×2 (09:36→12:29)
[2017-09-04] MEDS: levETIRAcetam 500 MG TAB PO SCH (09:36)
[2017-09-04] MEDS: Carvedilol 6.25 MG TAB PO SCH (09:37)
[2017-09-04] MEDS: Benzonatate 100 MG CAP PO PRN (09:37)
[2017-09-04 11:51] VITALS: BP 120/70; TEMP 97.9
--- NOTE | 2017-09-04 14:53 | DIS ---
DATE OF ADMISSION: 08/29/2017 DATE OF DISCHARGE: 09/04/2017 DISCHARGE DIAGNOSES: 1. Status post syncopal episode, likely multifactorial including hypotension and seizure activity. 2. Recurrent seizures, stable. 3. Hypotension, iatrogenic, resolving. 4. End-stage renal disease with peritoneal dialysis. 5. Hyponatremia, chronic, stable. 6. Hypokalemia, resolved. 7. Influenza A, status post Tamiflu therapy. CONSULTATIONS: Dr. Almas Coronel with Neurology Service. Dr. Durand and Dr. Dash with Cardiology Ser vice. PERTINENT LABORATORY DATA AND X-RAY FINDINGS: Creatinine ranged between 14.41-17.07, sodium ranged b etween 130-132, potassium ranged between 2.9-3.6, troponin I ranged between 0.028-0.061. CBC showed hemoglobin ranging between 10.9-12.8. Blood cultures x2 from 09/01/2017 showed no growth at [address] of the brain without contrast dated 08/29/2017 showed no acute intracranial process. Carotid D oppler study dated 08/30/2017 showed no hemodynamically significant stenosis with moderate stenosis n oted of the left internal carotid artery. A 2D transthoracic echocardiogram dated 08/31/2017 showed ejection fraction of 40%-45%. Mild diastolic dysfunction. HOSPITAL COURSE: Patient was admitted to the stroke floor after initial presentation for increased c ough and recurrent seizures. The patient was diagnosed with influenza A receiving Tamiflu and appare ntly sustained a syncopal episode x2 prior to admission. The patient had been recently evaluated in an outpatient setting for recurrent seizures undergoing imaging with negative results. The patient w as evaluated by the Neurology Service with recommendations for Keppra 250 mg b.i.d. The patient exhi bited further evidence of seizure activity during the hospital stay. The patient was also evaluated after serial blood pressure monitoring showed hypotension and the patient was held on multiple antihy pertensive medications and monitored serially. The patient's overall blood pressure trend improved w ith modification to his current regimen and likely will need additional monitoring on an ongoing basi s after discharge. The patient was evaluated by Cardiology service with recommendations for serial m onitoring and potentially consideration of a LINQ device on an outpatient basis. Overall, the patien t remained clinically stable throughout the remainder of the hospital course, tolerating regular oral intake, ambulatory without assistance or difficulty and ready for discharge on 09/04/2017. DISCHARGE MEDICATIONS: 1. Tylenol #3 300mg/30 mg 1 tablet p.o. q.4-6 hours p.r.n. pain. 2. Coreg 6.25 mg p.o. b.i.d. 3. Keppra 250 mg p.o. b.i.d. 4. Crestor 20 mg p.o. at bedtime. 5. Renvela 1600 mg p.o. t.i.d. FOLLOWUP: Patient will follow up with primary care provider Dr. Daria Pace within 7 days of discha rge. The patient will follow up with Dr. Adama Dash with [facility] within 7 da ys. The patient will follow up with Dr. Almas Coronel with Neurology Service and to call his office f or appointment time and date. CONDITION ON DISCHARGE: Stable. ACTIVITY: ad syed. DIET: Heart healthy and renal. CODE STATUS: FULL. DISPOSITION: Home 09/04/2017. Total time preparing and coordinating this discharge is 33 minutes.
--- NOTE | 2017-10-02 11:50 | EKG ---
Test Reason : Blood Pressure : / mmHG Vent. Rate : 085 BPM Atrial Rate : 085 BPM P-R Int : 158 ms QRS Dur : 106 ms QT Int : 368 ms P-R-T Axes : 046 028 061 degrees QTc Int : 437 ms Normal sinus rhythm Normal ECG Confirmed by CONRAD GARCIA MD ([id number]), clinical editor HANNAH PALACIO ([id number]) on 10/02/2017 11:50:37 AM Referred By: Confirmed By:CONRAD GARCIA MD
== END 2017-09-04 15:42 | disposition home or self-care (01) | DRG 100 ==
LOC: ERS 15:43 → 2SE 19:45 → OBSVTOIN 09-01 14:44
PROVIDERS: ADMIT Internal Medicine; ATTEND Internal Medicine
DX: G40.909 Epilepsy, unspecified, not intractable, without status epilepticus (principal); N18.6 End stage renal disease; I12.0 Hypertensive chronic kidney disease with stage 5 chronic kidney disease or end stage renal disease; E87.2 Acidosis; I95.89 Other hypotension; I24.8 Other forms of acute ischemic heart disease; I42.9 Cardiomyopathy, unspecified; E87.1 Hypo-osmolality and hyponatremia; D47.02 Systemic mastocytosis; E11.22 Type 2 diabetes mellitus with diabetic chronic kidney disease; J10.1 Influenza due to other identified influenza virus with other respiratory manifestations; Z99.2 Dependence on renal dialysis; E87.6 Hypokalemia; I65.22 Occlusion and stenosis of left carotid artery; D50.9 Iron deficiency anemia, unspecified; E87.8 Other disorders of electrolyte and fluid balance, not elsewhere classified; I25.10 Atherosclerotic heart disease of native coronary artery without angina pectoris; E11.51 Type 2 diabetes mellitus with diabetic peripheral angiopathy without gangrene; E21.3 Hyperparathyroidism, unspecified; J44.9 Chronic obstructive pulmonary disease, unspecified; Z87.01 Personal history of pneumonia (recurrent); Z86.19 Personal history of other infectious and parasitic diseases; Z90.49 Acquired absence of other specified parts of digestive tract; M17.9 Osteoarthritis of knee, unspecified; I08.1 Rheumatic disorders of both mitral and tricuspid valves; E11.65 Type 2 diabetes mellitus with hyperglycemia; D63.1 Anemia in chronic kidney disease; I95.1 Orthostatic hypotension
CPT/HCPCS: 36415; 36416; 70450; 71010; 80048; 80053; 82553; 83735; 84484; 85025; 87040; 90945; 93005; 93306; 93880; 96360; A4216; C9113; G0257; J1644; J1885; J7050

== ENCOUNTER → 2021-06-24 | Day surgery (SDC) | payer MEDICARE ==
[2021-06-23 13:18] VITALS: BMI 27.6
[~2021-06-24] MED LIST: Clopidogrel Bisulfate 300 MG TAB ONE; Clopidogrel Bisulfate 75 MG TAB ONE; HYDROcodone/Acetaminophen 5/325 mg Tablet ONE; Heparin 10,000 UNITS/ 10 ML VIAL ONE; Iopamidol 370 76% 50 ML VIAL FS ONE; Midazolam HCl 2 mg/2 ml Vial ONE; Protamine Sulfate 50 MG/5 ML VIAL ONE; diphenhydrAMINE 25 MG CAP ONE; diphenhydrAMINE 50 MG/ML VIAL ONE
== END ==
LOC: CCL 06:29
PROVIDERS: ATTEND Thoracic Surgery (Cardiothoracic Vascular Surgery)
PROC: 047K3Z1 Dilation of Right Femoral Artery using Drug-Coated Balloon, Percutaneous Approach (ICD-10-PCS; principal; 2021-06-24)
PROC: 047T34Z Dilation of Right Peroneal Artery with Drug-eluting Intraluminal Device, Percutaneous Approach (ICD-10-PCS; 2021-06-24)
PROC: 047P3ZZ Dilation of Right Anterior Tibial Artery, Percutaneous Approach (ICD-10-PCS; 2021-06-24)
DX: E11.51 Type 2 diabetes mellitus with diabetic peripheral angiopathy without gangrene (principal); L97.519 Non-pressure chronic ulcer of other part of right foot with unspecified severity; I70.235 Atherosclerosis of native arteries of right leg with ulceration of other part of foot; I13.2 Hypertensive heart and chronic kidney disease with heart failure and with stage 5 chronic kidney disease, or end stage renal disease; E11.22 Type 2 diabetes mellitus with diabetic chronic kidney disease; N18.6 End stage renal disease; I50.9 Heart failure, unspecified; I25.10 Atherosclerotic heart disease of native coronary artery without angina pectoris; J44.9 Chronic obstructive pulmonary disease, unspecified; Z87.891 Personal history of nicotine dependence; Z79.02 Long term (current) use of antithrombotics/antiplatelets; Z79.4 Long term (current) use of insulin; Z79.899 Other long term (current) drug therapy; Z88.6 Allergy status to analgesic agent; Z91.041 Radiographic dye allergy status; Z91.048 Other nonmedicinal substance allergy status; Z99.2 Dependence on renal dialysis
CPT/HCPCS: 36247; 36248; 37224; 37230; 37232; 75710; 76942; 85347; C1725; C1874; J1200; J1644; J2250; J2720; Q0163; Q9967

== ENCOUNTER 2022-12-06 08:43 | Day surgery (SDC) | payer OTHER ==
[2022-12-04 10:23] VITALS: BMI 26.6
[2022-12-06 11:02] LABS: #Eosinphils 0.1 thou/uL (0.0-0.7); #Lymphocytes 0.9 thou/uL (1.20-3.40); #Monocytes 0.6 thou/uL (0.11-0.59); #Neutrophils 6.3 thou/uL (1.40-6.50); %Basophils 0.4 % (0.0-1.0); %Eosinophils 1.8 % (0.0-10.0); %Lymphocytes 11.7 % (21.0-51.0); %Monocytes 7.8 % (0.0-10.0); %Neutrophils 78.2 % (42.0-75.0); Hemoglobin 10.4 g/dL (14.0-18.0); Mean Corpuscular HGB CONC 31.8 g/dL (32.0-36.0); Mean Corpuscular Hemoglobin 30.4 pg (27.0-31.0); Mean Corpuscular Volume 95.6 fl (78.0-98.0); Platelet Count 190 10x3/uL (130-400); RBC Distribution Width 15.2 % (11.5-14.5); Red Blood Cell (RBC) Count 3.44 mill/uL (4.70-6.10); White Blood Cell (WBC) Count 8.1 10x3/uL (4.8-10.8)
[2022-12-06 11:22] LABS: Anion Gap 17 mmol/L (10-20); BUN (Urea Nitrogen) 53 mg/dL (8.4-25.7); Calc. Creatinine Clearance 11 mL/min (70-130); Calcium 8.8 mg/dL (7.8-10.44); Carbon Dioxide 26 mmol/L (22-29); Chloride 93 mmol/L (98-107); Estimated GFR 7; Glucose 222 mg/dL (70-105); Potassium 5.1 mmol/L (3.5-5.1); Sodium 131 mmol/L (136-145)
[2022-12-06] MEDS ORDERED: Heparin 10,000 UNITS/ 10 ML VIAL ONE (14:02)
[2022-12-06] MEDS ORDERED: Lidocaine 2% PF 5 ML VIAL ONE (14:02)
[2022-12-06] MEDS ORDERED: Bupivacaine/Epinephrine 0.25% 30 ML VIAL ONE (14:02)
[2022-12-06] MEDS ORDERED: fentaNYL PF 100 MCG/2 ML SYRINGE ONE (14:46)
[2022-12-06] MEDS ORDERED: Sodium Chloride 0.9% 100 ML ONE (14:53)
[2022-12-06] MEDS ORDERED: CEFAZOLIN 2 GM VIAL ONE (14:53)
[2022-12-06] MEDS ORDERED: Lidocaine 1% PF 5 ML VIAL ONE (15:00)
[2022-12-06] MEDS ORDERED: Ondansetron PF 4 MG/2 ML Vial ONE ×2 (15:00→16:12)
[2022-12-06] MEDS ORDERED: Rocuronium Bromide 10 MG/ML (10ML VIAL) ONE (15:00)
[2022-12-06] MEDS ORDERED: SUGAMMADEX SODIUM 200 MG/2 ML VIAL ONE (15:20)
[2022-12-06] MEDS ORDERED: hydrALAZINE 20 MG/ML VIAL ONE (16:26)
== END 2022-12-06 17:15 | disposition home or self-care (01) ==
LOC: SDC 08:43
PROVIDERS: ATTEND Specialist
PROC: 0WHG43Z Insertion of Infusion Device into Peritoneal Cavity, Percutaneous Endoscopic Approach (ICD-10-PCS; principal; 2022-12-06)
PROC: 0DQU4ZZ Repair Omentum, Percutaneous Endoscopic Approach (ICD-10-PCS; 2022-12-06)
DX: N18.6 End stage renal disease (principal); K66.0 Peritoneal adhesions (postprocedural) (postinfection); Z79.02 Long term (current) use of antithrombotics/antiplatelets; Z79.4 Long term (current) use of insulin; Z79.899 Other long term (current) drug therapy; Z88.3 Allergy status to other anti-infective agents; Z88.8 Allergy status to other drugs, medicaments and biological substances; Z91.048 Other nonmedicinal substance allergy status; Z99.2 Dependence on renal dialysis
CPT/HCPCS: 49324; 49326; 80048; 82962; 85025; 93005; J0360; 36416; 93010; J1644; J2001; J2405; J3490

== ENCOUNTER 2025-08-01 21:34 | Inpatient (IN) | payer MEDICARE ==
[2025-08-01] MEDS ORDERED: Dextrose 50% Abboject 50 ML SYRINGE SLOW IVP PRN (23:37)
[2025-08-01] MEDS ORDERED: Glucagon 1 MG/ML KIT IM PRN (23:37)
[2025-08-01] MEDS ORDERED: Acetaminophen 325 MG TAB PO PRN (23:38)
[2025-08-02 00:14] LABS: #Basophils Less than 0.03 10x3/uL (0.0-0.2); #Eosinophils 0.10 10x3/uL (0.0-0.7); #Monocytes 0.56 10x3/uL (0.11-0.59); #Neutrophils 9.96 10x3/uL (1.40-6.50); %Basophils 0.2 % (0.0-1.0); %Eosinophils 0.9 % (0.0-10.0); %Lymphocytes 7.4 % (21.0-51.0); %Monocytes 4.8 % (0.0-10.0); %Neutrophils 86.2 % (42.0-75.0); Hematocrit 35.6 % (42.0-52.0); Hemoglobin 11.1 g/dL (14.0-18.0); Mean Corpuscular Hemoglobin 28.2 pg (27.0-31.0); Mean Corpuscular Volume 90.4 fL (78.0-98.0); Platelet Count 130 10x3/uL (130-400); Red Blood Cell (RBC) Count 3.94 mill/uL (4.70-6.10); White Blood Cell (WBC) Count 11.55 10x3/uL (4.8-10.8)
[2025-08-02 00:24] LABS: ALT (SGPT) 11 U/L (Less than 45); AST (SGOT) 20 U/L (11-34); Albumin 2.8 g/dL (3.1-4.5); Alkaline Phosphatase 91 U/L (40-110); Anion Gap 16 mmol/L (10-20); BUN (Urea Nitrogen) 38 mg/dL (8.4-25.7); Bilirubin, Total 0.5 mg/dL (0.3-1.2); Calc. Creatinine Clearance 0 mL/min (70-130); Calcium 8.4 mg/dL (7.8-10.44); Carbon Dioxide 28 mmol/L (23-31); Chloride 93 mmol/L (98-107); Globulin 3.7 g/dL (2.4-3.5); Glucose 262 mg/dL (80-115); Potassium 4.0 mmol/L (3.5-5.1); Sodium 133 mmol/L (136-145)
[2025-08-02 01:15] VITALS: BMI 26.9
[2025-08-02 08:05] LABS: #Basophils Less than 0.03 10x3/uL (0.0-0.2); #Eosinophils 0.23 10x3/uL (0.0-0.7); #Monocytes 0.34 10x3/uL (0.11-0.59); #Neutrophils 5.99 10x3/uL (1.40-6.50); %Basophils 0.3 % (0.0-1.0); %Eosinophils 3.4 % (0.0-10.0); %Lymphocytes 10.9 % (21.0-51.0); %Monocytes 4.6 % (0.0-10.0); %Neutrophils 80.6 % (42.0-75.0); Hematocrit 35.5 % (42.0-52.0); Hemoglobin 10.8 g/dL (14.0-18.0); Mean Corpuscular Hemoglobin 28.3 pg (27.0-31.0); Mean Corpuscular Volume 93.4 fL (78.0-98.0); Platelet Count 131 10x3/uL (130-400); Red Blood Cell (RBC) Count 3.81 mill/uL (4.70-6.10); White Blood Cell (WBC) Count 7.43 10x3/uL (4.8-10.8)
[2025-08-02 08:23] LABS: ALT (SGPT) 37 U/L (Less than 45); AST (SGOT) 50 U/L (11-34); Albumin 2.6 g/dL (3.1-4.5); Alkaline Phosphatase 88 U/L (40-110); Anion Gap 15 mmol/L (10-20); BUN (Urea Nitrogen) 43 mg/dL (8.4-25.7); Bilirubin, Total 0.6 mg/dL (0.3-1.2); Calc. Creatinine Clearance 19 mL/min (70-130); Calcium 8.3 mg/dL (7.8-10.44); Carbon Dioxide 30 mmol/L (23-31); Chloride 92 mmol/L (98-107); Globulin 3.6 g/dL (2.4-3.5); Glucose 216 mg/dL (80-115); Potassium 3.8 mmol/L (3.5-5.1); Sodium 133 mmol/L (136-145)
[2025-08-02] MEDS: Ondansetron PF 4 MG/2 ML Vial IVP PRN (10:27)
[2025-08-02 11:27] LABS: INR-International Normal Ratio 1.1; Prothrombin Time 14.3 sec (12.0-14.7)
[2025-08-02 11:28] LABS: PTT 44.3 sec (22.9-36.1)
[2025-08-02] MEDS ORDERED: Lidocaine 1% w/Epinephrine 1:100K 20 ML VIAL ONE (12:18)
[2025-08-02] MEDS ORDERED: Sodium Bicarbonate 2.5 MEQ/5 ML SDV ONE (12:18)
[2025-08-03 05:34] LABS: ALT (SGPT) 28 U/L (Less than 45); AST (SGOT) 25 U/L (11-34); Albumin 2.5 g/dL (3.1-4.5); Alkaline Phosphatase 78 U/L (40-110); Anion Gap 17 mmol/L (10-20); BUN (Urea Nitrogen) 54 mg/dL (8.4-25.7); Bilirubin, Total 0.5 mg/dL (0.3-1.2); Calc. Creatinine Clearance 16 mL/min (70-130); Calcium 8.5 mg/dL (7.8-10.44); Carbon Dioxide 28 mmol/L (23-31); Chloride 95 mmol/L (98-107); Globulin 3.6 g/dL (2.4-3.5); Glucose 134 mg/dL (80-115); Potassium 4.1 mmol/L (3.5-5.1); Sodium 136 mmol/L (136-145)
[2025-08-03 05:35] LABS: #Basophils Less than 0.03 10x3/uL (0.0-0.2); #Eosinophils 0.28 10x3/uL (0.0-0.7); #Monocytes 0.32 10x3/uL (0.11-0.59); #Neutrophils 6.48 10x3/uL (1.40-6.50); %Basophils 0.3 % (0.0-1.0); %Eosinophils 3.6 % (0.0-10.0); %Lymphocytes 8.0 % (21.0-51.0); %Monocytes 4.1 % (0.0-10.0); %Neutrophils 83.7 % (42.0-75.0); Hematocrit 36.3 % (42.0-52.0); Hemoglobin 11.1 g/dL (14.0-18.0); Mean Corpuscular Hemoglobin 28.0 pg (27.0-31.0); Mean Corpuscular Volume 91.4 fL (78.0-98.0); Platelet Count 122 10x3/uL (130-400); Red Blood Cell (RBC) Count 3.97 mill/uL (4.70-6.10); White Blood Cell (WBC) Count 7.74 10x3/uL (4.8-10.8)
[2025-08-03 07:43] LABS: HBSAB Concentration 137.98 mIU/mL; Hep B Core Total Ab NONREACTIVE (NonReactive); Hep B Core Total Index 0.13 S/CO (0-0.79); Hep B Surf Ag NONREACTIVE S/CO (NonReactive); Hep C IgG Ab NONREACTIVE S/CO (NonReactive); Hep C Index 0.20 S/CO (0-0.79)
[2025-08-03] MEDS: predniSONE 20 MG TAB PO SCH (13:26)
[2025-08-03] MEDS: diphenhydrAMINE 25 MG CAP PO SCH (13:26)
[2025-08-04 05:02] LABS: #Basophils Less than 0.03 10x3/uL (0.0-0.2); #Eosinophils 0.07 10x3/uL (0.0-0.7); #Monocytes 0.31 10x3/uL (0.11-0.59); #Neutrophils 13.23 10x3/uL (1.40-6.50); %Basophils 0.1 % (0.0-1.0); %Eosinophils 0.5 % (0.0-10.0); %Lymphocytes 2.8 % (21.0-51.0); %Monocytes 2.2 % (0.0-10.0); %Neutrophils 94.0 % (42.0-75.0); Hematocrit 36.0 % (42.0-52.0); Hemoglobin 11.3 g/dL (14.0-18.0); Mean Corpuscular Hemoglobin 28.8 pg (27.0-31.0); Mean Corpuscular Volume 91.6 fL (78.0-98.0); Platelet Count 123 10x3/uL (130-400); Red Blood Cell (RBC) Count 3.93 mill/uL (4.70-6.10); White Blood Cell (WBC) Count 14.09 10x3/uL (4.8-10.8)
[2025-08-04 05:28] LABS: ALT (SGPT) 18 U/L (Less than 45); AST (SGOT) 15 U/L (11-34); Albumin 2.4 g/dL (3.1-4.5); Alkaline Phosphatase 73 U/L (40-110); Anion Gap 19 mmol/L (10-20); BUN (Urea Nitrogen) 33 mg/dL (8.4-25.7); Bilirubin, Total 0.5 mg/dL (0.3-1.2); Calc. Creatinine Clearance 21 mL/min (70-130); Calcium 8.7 mg/dL (7.8-10.44); Carbon Dioxide 24 mmol/L (23-31); Chloride 99 mmol/L (98-107); Globulin 3.7 g/dL (2.4-3.5); Glucose 123 mg/dL (80-115); Potassium 4.4 mmol/L (3.5-5.1); Sodium 138 mmol/L (136-145)
[2025-08-04] MEDS: Losartan 25 MG TAB PO SCH (14:56)
[2025-08-04] MEDS: Carvedilol 25 MG TAB PO SCH (16:32)
[2025-08-04] MEDS: cloNIDine 0.1 MG TAB PO SCH (21:13)
[2025-08-04] MEDS: levETIRAcetam 500 MG TAB PO SCH (21:13)
[2025-08-04] MEDS: NIFEdipine XL 60 MG ER.TAB PO SCH (21:14)
[2025-08-05 04:57] LABS: #Basophils Less than 0.03 10x3/uL (0.0-0.2); #Eosinophils 0.28 10x3/uL (0.0-0.7); #Monocytes 0.43 10x3/uL (0.11-0.59); #Neutrophils 6.02 10x3/uL (1.40-6.50); %Basophils 0.0 % (0.0-1.0); %Eosinophils 3.8 % (0.0-10.0); %Lymphocytes 8.2 % (21.0-51.0); %Monocytes 5.9 % (0.0-10.0); %Neutrophils 81.8 % (42.0-75.0); Hematocrit 37.1 % (42.0-52.0); Hemoglobin 11.7 g/dL (14.0-18.0); Mean Corpuscular Hemoglobin 28.2 pg (27.0-31.0); Mean Corpuscular Volume 89.4 fL (78.0-98.0); Platelet Count 160 10x3/uL (130-400); Red Blood Cell (RBC) Count 4.15 mill/uL (4.70-6.10); White Blood Cell (WBC) Count 7.35 10x3/uL (4.8-10.8)
[2025-08-05 05:13] LABS: ALT (SGPT) 11 U/L (Less than 45); AST (SGOT) 12 U/L (11-34); Albumin 2.3 g/dL (3.1-4.5); Alkaline Phosphatase 72 U/L (40-110); Anion Gap 21 mmol/L (10-20); BUN (Urea Nitrogen) 52 mg/dL (8.4-25.7); Bilirubin, Total 0.4 mg/dL (0.3-1.2); Calc. Creatinine Clearance 15 mL/min (70-130); Calcium 8.6 mg/dL (7.8-10.44); Carbon Dioxide 25 mmol/L (23-31); Chloride 94 mmol/L (98-107); Globulin 3.8 g/dL (2.4-3.5); Glucose 227 mg/dL (80-115); Potassium 4.2 mmol/L (3.5-5.1); Sodium 136 mmol/L (136-145)
[2025-08-05] MEDS: Losartan 25 MG TAB PO SCH (07:53)
[2025-08-05] MEDS: Rosuvastatin 10 MG TAB PO SCH (07:54)
[2025-08-05] MEDS: Pantoprazole 40 MG DR.TAB PO SCH (07:54)
[2025-08-05] MEDS ORDERED: NIFEdipine XL 60 MG ER.TAB PO SCH (11:19)
[2025-08-05] MEDS: diphenhydrAMINE 25 MG CAP PO SCH (12:48)
[2025-08-05] MEDS: predniSONE 20 MG TAB PO SCH (12:48)
[2025-08-05] MEDS: Albumin 25% 25 GM (100 mL) BOT IVPB SCH (12:59)
[2025-08-05] MEDS: NIFEdipine XL 30 MG ER.TAB PO SCH (13:07)
[2025-08-05] MEDS: HYDROcodone/Acetaminophen 5/325 mg Tablet PO PRN (15:18)
[2025-08-06] MEDS: Losartan 25 MG TAB PO SCH (07:54)
[2025-08-06] MEDS: Pantoprazole 40 MG VIAL IVP SCH ×2 (07:58→20:37)
[2025-08-06] MEDS: Heparin 25,000 units/D5W 25,000 UNITS in Premix 1 BAG IV PRN (10:57)
[2025-08-06] MEDS: Heparin 10,000 UNITS/ 10 ML VIAL FS PRN (10:59)
[2025-08-06] MEDS ORDERED: Etomidate 40 MG (20 mL) VIAL ONE (16:20)
[2025-08-06] MEDS ORDERED: SUCCINYLCHOLINE/SOD CL,ISO/PF 200 MG/10 ML SYRINGE FS ONE (16:25)
[2025-08-06] MEDS ORDERED: Ondansetron PF 4 MG/2 ML Vial ONE (16:33)
[2025-08-06 16:45] VITALS: BMI 26.9
[2025-08-06] MEDS ORDERED: hydrALAZINE 20 MG/ML VIAL ONE (17:02)
[2025-08-07 05:08] LABS: #Basophils Less than 0.03 10x3/uL (0.0-0.2); #Eosinophils Less than 0.03 10x3/uL (0.0-0.7); #Monocytes 0.18 10x3/uL (0.11-0.59); #Neutrophils 6.89 10x3/uL (1.40-6.50); %Basophils 0.1 % (0.0-1.0); %Eosinophils 0.0 % (0.0-10.0); %Lymphocytes 5.9 % (21.0-51.0); %Monocytes 2.4 % (0.0-10.0); %Neutrophils 90.9 % (42.0-75.0); Hematocrit 40.2 % (42.0-52.0); Hemoglobin 11.9 g/dL (14.0-18.0); Mean Corpuscular Hemoglobin 28.1 pg (27.0-31.0); Mean Corpuscular Volume 94.8 fL (78.0-98.0); Platelet Count 167 10x3/uL (130-400); Red Blood Cell (RBC) Count 4.24 mill/uL (4.70-6.10); White Blood Cell (WBC) Count 7.58 10x3/uL (4.8-10.8)
[2025-08-07 05:29] LABS: Anion Gap 22 mmol/L (10-20); BUN (Urea Nitrogen) 38 mg/dL (8.4-25.7); Calc. Creatinine Clearance 19 mL/min (70-130); Calcium 8.3 mg/dL (7.8-10.44); Carbon Dioxide 22 mmol/L (23-31); Chloride 95 mmol/L (98-107); Glucose 250 mg/dL (80-115); Potassium 4.7 mmol/L (3.5-5.1); Sodium 134 mmol/L (136-145)
[2025-08-07] MEDS: Calcium Carbonate 500 MG ChewTAB PO PRN (10:17)
[2025-08-07] MEDS ORDERED: Glycerin Adult Supp. (12 ct jar) PR PRN (11:02)
[2025-08-08 05:10] LABS: #Basophils Less than 0.03 10x3/uL (0.0-0.2); #Eosinophils 0.13 10x3/uL (0.0-0.7); #Monocytes 0.52 10x3/uL (0.11-0.59); #Neutrophils 8.06 10x3/uL (1.40-6.50); %Basophils 0.1 % (0.0-1.0); %Eosinophils 1.4 % (0.0-10.0); %Lymphocytes 8.5 % (21.0-51.0); %Monocytes 5.4 % (0.0-10.0); %Neutrophils 84.0 % (42.0-75.0); Hematocrit 38.6 % (42.0-52.0); Hemoglobin 11.6 g/dL (14.0-18.0); Mean Corpuscular Hemoglobin 27.8 pg (27.0-31.0); Mean Corpuscular Volume 92.3 fL (78.0-98.0); Platelet Count 169 10x3/uL (130-400); Red Blood Cell (RBC) Count 4.18 mill/uL (4.70-6.10); White Blood Cell (WBC) Count 9.60 10x3/uL (4.8-10.8)
[2025-08-08 05:29] LABS: Anion Gap 17 mmol/L (10-20); BUN (Urea Nitrogen) 25 mg/dL (8.4-25.7); Calc. Creatinine Clearance 25 mL/min (70-130); Calcium 8.0 mg/dL (7.8-10.44); Carbon Dioxide 25 mmol/L (23-31); Chloride 96 mmol/L (98-107); Glucose 192 mg/dL (80-115); Potassium 3.9 mmol/L (3.5-5.1); Sodium 134 mmol/L (136-145)
[2025-08-08] MEDS ORDERED: Glycerin Adult Supp. (12 ct jar) PR PRN (09:44)
[2025-08-09 06:52] LABS: #Basophils 0.03 10x3/uL (0.0-0.2); #Eosinophils 0.34 10x3/uL (0.0-0.7); #Monocytes 0.62 10x3/uL (0.11-0.59); #Neutrophils 8.11 10x3/uL (1.40-6.50); %Basophils 0.3 % (0.0-1.0); %Eosinophils 3.3 % (0.0-10.0); %Lymphocytes 10.1 % (21.0-51.0); %Monocytes 6.1 % (0.0-10.0); %Neutrophils 79.5 % (42.0-75.0); Hematocrit 42.4 % (42.0-52.0); Hemoglobin 12.6 g/dL (14.0-18.0); Mean Corpuscular Hemoglobin 27.7 pg (27.0-31.0); Mean Corpuscular Volume 93.2 fL (78.0-98.0); Platelet Count 146 10x3/uL (130-400); Red Blood Cell (RBC) Count 4.55 mill/uL (4.70-6.10); White Blood Cell (WBC) Count 10.20 10x3/uL (4.8-10.8)
[2025-08-09 07:07] LABS: Anion Gap 20 mmol/L (10-20); BUN (Urea Nitrogen) 30 mg/dL (8.4-25.7); Calc. Creatinine Clearance 19 mL/min (70-130); Calcium 8.5 mg/dL (7.8-10.44); Carbon Dioxide 23 mmol/L (23-31); Chloride 97 mmol/L (98-107); Glucose 152 mg/dL (80-115); Potassium 3.5 mmol/L (3.5-5.1); Sodium 136 mmol/L (136-145)
[2025-08-09] MEDS: Simethicone Chewable 80 MG TAB PO PRN (09:31)
[2025-08-10 06:56] LABS: #Basophils 0.03 10x3/uL (0.0-0.2); #Eosinophils 0.32 10x3/uL (0.0-0.7); #Monocytes 0.58 10x3/uL (0.11-0.59); #Neutrophils 8.78 10x3/uL (1.40-6.50); %Basophils 0.3 % (0.0-1.0); %Eosinophils 3.0 % (0.0-10.0); %Lymphocytes 8.8 % (21.0-51.0); %Monocytes 5.4 % (0.0-10.0); %Neutrophils 81.8 % (42.0-75.0); Hematocrit 37.7 % (42.0-52.0); Hemoglobin 11.5 g/dL (14.0-18.0); Mean Corpuscular Hemoglobin 27.9 pg (27.0-31.0); Mean Corpuscular Volume 91.5 fL (78.0-98.0); Platelet Count 136 10x3/uL (130-400); Red Blood Cell (RBC) Count 4.12 mill/uL (4.70-6.10); White Blood Cell (WBC) Count 10.72 10x3/uL (4.8-10.8)
[2025-08-10 07:13] LABS: Anion Gap 19 mmol/L (10-20); BUN (Urea Nitrogen) 36 mg/dL (8.4-25.7); Calc. Creatinine Clearance 14 mL/min (70-130); Calcium 8.4 mg/dL (7.8-10.44); Carbon Dioxide 24 mmol/L (23-31); Chloride 97 mmol/L (98-107); Glucose 137 mg/dL (80-115); Potassium 3.6 mmol/L (3.5-5.1); Sodium 136 mmol/L (136-145)
[2025-08-10 13:30] VITALS: BP 167/78; TEMP 97.4
== END 2025-08-10 15:07 | disposition home or self-care (01) | DRG 73 ==
LOC: ERS 21:34 → SURG B 23:40
PROVIDERS: ADMIT Student in an Organized Health Care Education/Training Program; ATTEND Hospitalist
PROC: 0W9G3ZZ Drainage of Peritoneal Cavity, Percutaneous Approach (ICD-10-PCS; 2025-08-02)
PROC: 3E03329 Introduction of Other Anti-infective into Peripheral Vein, Percutaneous Approach (ICD-10-PCS; 2025-08-02)
PROC: 5A1D70Z Performance of Urinary Filtration, Intermittent, Less than 6 Hours Per Day (ICD-10-PCS; 2025-08-02)
PROC: 30233J1 Transfusion of Nonautologous Serum Albumin into Peripheral Vein, Percutaneous Approach (ICD-10-PCS; 2025-08-05)
PROC: 0DB38ZX Excision of Lower Esophagus, Via Natural or Artificial Opening Endoscopic, Diagnostic (ICD-10-PCS; principal; 2025-08-06)
PROC: 0DB18ZX Excision of Upper Esophagus, Via Natural or Artificial Opening Endoscopic, Diagnostic (ICD-10-PCS; 2025-08-06)
DX: E11.43 Type 2 diabetes mellitus with diabetic autonomic (poly)neuropathy (principal); N18.6 End stage renal disease; I16.1 Hypertensive emergency; I42.9 Cardiomyopathy, unspecified; I13.2 Hypertensive heart and chronic kidney disease with heart failure and with stage 5 chronic kidney disease, or end stage renal disease; I50.22 Chronic systolic (congestive) heart failure; J90 Pleural effusion, not elsewhere classified; K21.00 Gastro-esophageal reflux disease with esophagitis, without bleeding; Z99.2 Dependence on renal dialysis; Z88.6 Allergy status to analgesic agent; Z91.041 Radiographic dye allergy status; I25.10 Atherosclerotic heart disease of native coronary artery without angina pectoris; Z95.5 Presence of coronary angioplasty implant and graft; E11.22 Type 2 diabetes mellitus with diabetic chronic kidney disease; D63.1 Anemia in chronic kidney disease; E11.65 Type 2 diabetes mellitus with hyperglycemia; I34.0 Nonrheumatic mitral (valve) insufficiency; E78.00 Pure hypercholesterolemia, unspecified; Z90.49 Acquired absence of other specified parts of digestive tract; Z98.890 Other specified postprocedural states; Z87.891 Personal history of nicotine dependence; K31.84 Gastroparesis; Z79.899 Other long term (current) drug therapy; Z79.4 Long term (current) use of insulin
CPT/HCPCS: 36415; 36416; 49083; 80048; 80053; 83036; 83605; 85025; 85610; 85730; 86704; 86706; 86803; 87070; 87205; 87340; 88305; 90935; 96374; G0257; J0360; J0780; J1100; J1644; J1815; J2270; J2405; J2470; J2543; J2550; J3010; J7512; P9047; Q0162